=== PATIENT | male | born 1935 | race Caucasian/White ===

== ENCOUNTER → 2016-04-06 | Outpatient (CLI) | payer MEDICARE ==
[~2016-04-06] MED LIST: AMITRIPTYLINE 225 MG PO; ASPIRIN 81MG TA81 MG PO; ATORVASTATIN CA20 MG PO; CARDURA2 M1 PO; CELEXA20 MG PO; DILTIAZEM ER 1120 MG PO; DOXAZOSIN MESYLA1 MG NG; DOXAZOSIN MESYLA1 MG PO; GABAPENTIN 600600 MG PO; JANUVIA50 MG PO; LEVAQUIN500 MG PO; LIPITOR40 MG PO; METFORMIN1000 MG PO; METOPROLOL TAR100 MG PO; NICOTINE PATCH;14 MG TD; OMNICEF 300 MG300 MG PO; QUETIAPINE FUMA25 M1 PO; TRAMADOL 50MG T50 M1 PO; TYLENOL ES500 MG PO; VITAMIN B-1100 MG PO
--- NOTE | 2016-04-06 12:50 | RADIOLOGY REPORT PS360 ---
HIP RT 2-3V W/PELVIS IF PERFOR HISTORY: MEAGAN HIP PAIN,LOW BACK PAIN COMPARISON: None FINDINGS: No fracture or dislocation. No lytic or blastic change. No significant degenerative change. Mild sclerosis right SI joint. IMPRESSION: Negative right hip. Mild sclerosis right SI joint
--- NOTE | 2016-04-06 12:51 | RADIOLOGY REPORT PS360 ---
HIP LT 2-3V W/PELVIS IF PERFOR HISTORY: MEAGAN HIP PAIN,LOW BACK PAIN COMPARISON: None FINDINGS: No fracture or dislocation is evident. No significant degenerative change. No lytic or blastic change. Unremarkable soft tissues IMPRESSION: Negative left hip
--- NOTE | 2016-04-06 12:53 | RADIOLOGY REPORT PS360 ---
LUMBAR SPINE 5 VIEWS HISTORY: MEAGAN HIP PAIN,LOW BACK PAIN COMPARISON: None FINDINGS: There is multilevel degenerative disc disease from T12 to L5 with mild retrolisthesis of L2 on L3 of 5 mm. Mild retrolisthesis of L3 on L4 of 3 mm. No fracture or dislocation. No lytic or blastic change. There are facet hypertrophic changes at L3, L4, and L5. Minimal levoscoliosis lumbar spine. Bilateral iliac artery stents are present. Mild sclerosis right side joint. Anterior osteophytosis of the lumbar spine IMPRESSION: 1. Degenerative disc disease with facet arthritic changes as described above. 2. No acute fracture.
== END ==
LOC: RAD 12:06
DX: M54.5 Low back pain (principal); M25.552 Pain in left hip; M25.551 Pain in right hip

== ENCOUNTER → 2016-05-08 | Outpatient (CLI) | payer MEDICARE ==
[2016-05-08 10:09] LABS: HEMOGLOBIN 13.3 g/dL (14.1-18.0); LYMPH # 1.9 K/mm3 (0.7-4.5); LYMPH % 24.6 % (10-50)
--- NOTE | 2016-05-08 11:00 | RADIOLOGY REPORT PS360 ---
EXAM: LUMBAR SPINE 5 VIEWS HISTORY: 2 LUMBAGO WITH SCIATICA ORDERING PHYSICIAN: SUSAN SOLER APRN PATIENT AGE: 80 years COMPARISON: None FINDINGS: Normal alignment. There is multilevel degenerative disc disease from T12 to S1.. Endplate sclerosis with endplate osteophytes and decrease in the disc space noted at every level less severe at the L5-S1 region. Mild retrolisthesis L2-L3 of 5 mm, L3-L4 4 mm,. No acute fracture or dislocation. No lytic or blastic change. Marginal osteophytes are present prominent on the left at L2-L3. Sclerosis of the right SI joint inferiorly. Surgical clips right upper quadrant. Vascular stents present in iliac region. 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
--- NOTE | 2016-05-08 11:01 | RADIOLOGY REPORT PS360 ---
SACROILIAC JOINT CLINICAL INDICATION: LUMBAGO WITH SCIATICA ORDERING PHYSICIAN: SUSAN SOLER APRN PATIENT AGE: 80 years COMPARISON: None FINDINGS: There is sclerosis and mild hypertrophic change of the inferior aspect of the right SI joint. The left SI joint is unremarkable. No fracture or dislocation. No lytic change or blastic change. 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
--- NOTE | 2016-05-08 11:07 | RADIOLOGY REPORT PS360 ---
CT HEAD W/O CONTRAST HISTORY: CONFUSION DIZZINESS ORDERING PHYSICIAN: SUSAN SOLER APRN PATIENT AGE: 80 years TECHNIQUE: Axial images obtained without contrast. Brain and bone windows reviewed. FINDINGS: No midline shift, mass effect, intracranial hemorrhage, hydrocephalus, or extra-axial fluid collection is evident. There is mild generalized atrophy with hypoattenuation in the periventricular and subcortical white matter consistent with ischemic gliotic change from microvascular disease. The calvarium has an unremarkable appearance. No mastoid effusion. The visualized paranasal sinuses are unremarkable. IMPRESSION: 1. No acute intracranial pathology with no significant change from 05/25/2014. 2. Atrophy with chronic ischemic changes..
[2016-05-08 11:58] LABS: BUN 15 mg/dL (7-18)
[2016-05-08 12:10] LABS: GFR (ESTIMATED) 72 ML/MIN (>60)
== END ==
LOC: LAB 09:44
PROVIDERS: Nurse Practitioner Family
DX: M54.42 Lumbago with sciatica, left side (principal); R41.0 Disorientation, unspecified; R42 Dizziness and giddiness; C61 Malignant neoplasm of prostate

== ENCOUNTER → 2016-05-09 | Outpatient (CLI) | payer MEDICARE ==
[2016-05-09 10:09] LABS: URINE BILIRUBIN - DIPSTICK NEGATIVE (NEG); URINE BLOOD NEGATIVE (NEG)
[2016-05-09 10:57] LABS: URINE SQUAMOUS CELLS OCC #/hpf (OCC)
== END ==
LOC: LAB 09:21
PROVIDERS: Nurse Practitioner Family
DX: R41.0 Disorientation, unspecified (principal); C61 Malignant neoplasm of prostate